=== PATIENT | female | born 1945 | race Caucasian/White ===

== ENCOUNTER 2024-11-08 16:25 | Emergency (ER) | payer MEDICARE, OTHER, SELFPAY ==
[2024-11-08] VITALS (12 sets, daily range): BP systolic 73–133; BP diastolic 54–114; PULSE 91–138; RESP 18–32; TEMP 36.5–37; O2SAT 68–97; BMI 24.5
--- NOTE | 2024-11-08 16:47 | CT_ITS ---
EXAM: CT Angiography Chest Without and With Intravenous Contrast CLINICAL INDICATION: RULE OUT PE TECHNIQUE: Axial computed tomographic angiography images of the chest without and with intravenous contrast. This CT exam was performed using one or more of the following dose reduction techniques: automated exposure control, adjustment of the mA and/or kV according to patient size, and/or use of iterative reconstruction technique. MIP reconstructed images were created and reviewed. COMPARISON: No relevant prior studies available. FINDINGS: PULMONARY ARTERIES: Bilateral pulmonary emboli. AORTA: No acute findings. No thoracic aortic aneurysm. LUNGS AND PLEURAL SPACES: Lung emphysema. No mass. No consolidation. No significant effusion. No pneumothorax. HEART: Unremarkable. No cardiomegaly. No significant pericardial effusion. No evidence of RV dysfunction. BONES/JOINTS: No acute fracture. No dislocation. SOFT TISSUES: Unremarkable. LYMPH NODES: Unremarkable. No enlarged lymph nodes. CT/CTA Chest W/WO Contrast IMPRESSION: Bilateral pulmonary emboli. Red Alert: Bilateral pulmonary emboli The critical findings in the findings and impression above were relayed directl y by me by telephone to Nerissa Briggs on 11/08/2024 at 6:02 pm with readback verification. Reading Location: [facility]
--- NOTE | 2024-11-08 16:47 | CT_ITS ---
PROCEDURE: CT ABDOMEN/PELVIS W IV CONT ONLY 11/08/2024 REASON FOR EXAM: DIARRHEA 3 WEEKS TECHNIQUE: Procedure Code: [id number] Modality: CT Procedure: ABDOMEN/PELVIS W IV CONT ONLY Coronal and Sagittal reconstruction series were provided. One or more dose reduction techniques were used (e.g., Automated exposure control, adjustment of the mA and/or kV according to patient size, use of iterative reconstruction technique. RADIATION DOSE SUMMARY: DLP: 1647.73 mGycm COMPARISON: None. FINDINGS: Lung bases: Clear. Liver: Unremarkable. Gallbladder: Surgically absent. No significant biliary ductal dilatation. Spleen: Unremarkable. Pancreas: Unremarkable. Adrenals: Unremarkable. Kidneys: Mildly atrophic multicystic kidneys likely related to CKD/ESRD. Several cysts have minimally complex features with thin rim calcification. No urolithiasis or hydronephrosis. Bladder: Underdistended, although there appears to be circumferential bladder wall thickening suggestive of cystitis. Air within the bladder may be related to recent catheterization. Reproductive Organs: Prior hysterectomy. Unremarkable adnexal regions. Bowel: Unremarkable stomach and small bowel. No evidence of obstruction. Appendix is not identified but there are no pericecal inflammatory changes. Wall thickening and mild inflammatory fat stranding along the descending and rectosigmoid colon, with advanced distal colonic diverticulosis, likely reflecting segmental colitis and/or diverticulitis. Lymph nodes: No suspicious lymph node enlargement. Vasculature: Abdominal aorta is tortuous but normal in caliber. Advanced atherosclerotic disease involving the major branch vessels. Peritoneum / Retroperitoneum: No ascites or free air. Bones: Multilevel degenerative changes of the spine, with moderate lumbar levoscoliosis. Chronic compression fracture deformities of L2 and L3 with kyphoplasty bone cement. Partially imaged ORIF of the left proximal femur, with intact hardware. Chronic bilateral lower rib fracture deformities. CT/Abdomen/Pelvis W IV Cont ONLY IMPRESSION: 1. Segmental colitis/diverticulitis involving the descending and rectosigmoid c olon. 2. Circumferential bladder wall thickening suggesting cystitis. Air within the bladder lumen probably related to recent catheterization. Correlate clinically. 3. Atrophic multicystic kidneys likely related to CKD/ESRD. Multiple cysts hav e minimally complex features with thin rim calcification. No hydronephrosis. 4. Additional non-acute ancillary findings, as noted above. Reading Location: [facility]
--- NOTE | 2024-11-08 16:47 | CT_ITS ---
EXAM: CT Head Without Intravenous Contrast CLINICAL INDICATION: SYNCOPE TECHNIQUE: Axial computed tomography images of the head/brain without intravenous contrast. This CT exam was performed using one or more of the following dose reduction techniques: automated exposure control, adjustment of the mA and/or kV according to patient size, and/or use of iterative reconstruction technique. COMPARISON: No relevant prior studies available. FINDINGS: BRAIN AND EXTRA-AXIAL SPACES: The cerebral and cerebellar sulci are prominent consistent with brain atrophy. Areas of decreased attenuation in the deep cerebral white matter are consistent with small vessel ischemic/degenerative changes. No acute intracranial hemorrhage, midline shift or mass effect. If symptoms persist, further evaluation with MRI is recommended. BONES/JOINTS: Unremarkable. No acute fracture. SOFT TISSUES: Unremarkable. SINUSES: Unremarkable as visualized. No acute sinusitis. MASTOID AIR CELLS: Unremarkable as visualized. No mastoid effusion. CT/Brain/Head without Contrast IMPRESSION: 1. Generalized brain atrophy. 2. Small vessel ischemic/degenerative changes. 3. No acute intracranial hemorrhage, midline shift or mass effect. If symptoms persist, further evaluation with MRI is recommended. Reading Location: [id number]
--- NOTE | 2024-11-08 16:47 | EKG12_ITS ---
Test Reason : SYNCOPE Blood Pressure : */* mmHG Vent. Rate : 131 BPM Atrial Rate : * BPM P-R Int : * ms QRS Dur : 80 ms QT Int : 342 ms P-R-T Axes : * -61 123 degrees QTcB Int : 505 ms Atrial fibrillation with rapid ventricular response Left axis deviation Septal infarct , age undetermined Marked ST abnormality, possible lateral subendocardial injury Abnormal ECG Confirmed by MURPHY PETIT, STEPHON ([id number]), online editor JULES VALADEZ ([id number]) on 11/11/2024 8:13:48 AM Referred By: ER Confirmed By: STEPHON ARRINGTON MD
--- NOTE | 2024-11-08 16:56 | EX.ED.DYSGE1 ---
HPI History of Present Illness Chief Complaint: Syncope Narrative Narrative: Patient is an 79-year-old female presenting to the emergency department for 3 weeks of diarrhea and a syncopal episode today. Patient has a past medical history of hyperlipidemia, chronic pain syndrome, hypertension, mitral valve stenosis, diastolic CHF, CKD. Patient is DNR CCA, paperwork was brought with the patient. Reportedly per the younger sister at bedside she states that the patient lived in [place] and about 3 weeks ago the patients neighbor called the patient's younger sister to come pick her up because she was not doing well. Sister states that since then she has had diarrhea. She has not been eating or drinking well. She was brought here and placed at [facility]. They state she has lost about 25 pounds since placement there. Patient only reports diarrhea. She is a very poor historian. She denies chest pain, shortness of breath, headache, abdominal pain, dysuria or hematuria. Sister states that she took her to her house today and then when she was taking her back to the facility she was in a wheelchair and syncopized. She did not fall. There was no evidence of seizure-like activity. Patient is on no oral anticoagulation. [facility] Medical History Hypertension Allergy/AdvReac Type Severity Reaction Status Date / Time No Known Allergies Allergy Verified 11/08/24 16:26 Social History Smoking Status: Former smoker ROS ROS ED ROS Narrative See HPI EXAM Physical Exam Narrative Exam Narrative: Vital signs: Reviewed General: Alert and orientedx3. No acute distress. Chronically ill-appearing. HEENT: Head is normocephalic and atraumatic, sinuses nontender, pupils equal round and reactive. Nares are patent. Oropharynx and throat exams normal. Neck: Supple without lymphadenopathy nontender Cardiovascular: Irregularly irregular rate and rhythm, no murmurs. No rubs or gallops. Normal S1 and S2 Respiratory: Clear to auscultation bilaterally. No wheezes, rales, rhonchi. On 4 L NC. Abdominal: Soft and nontender. Normal bowel sounds. No guarding or rebound. Nonsurgical abdomen Extremities: No tenderness. No bruising. Normal range of motion. Normal sensation. Skin: No rash or redness. Neurological: Cranial nerves II through XII are grossly intact. Normal strength and sensation. Normal cerebellar function The rest of the physical exam is unremarkable Const Vital Signs: 11/08/24 16:26 11/08/24 16:33 11/08/24 16:39 Temperature 98.6 F 98.6 F Temperature Source Oral Oral Pulse Rate 137 H 138 H Respiratory Rate 32 H 31 H Respiratory Effort Respiratory Pattern Blood Pressure 133/114 H 84/63 L 73/58 L Blood Pressure Mean 120 70 63 Pulse Ox 74 Oxygen Delivery Method Room Air Room Air Oxygen Flow Rate (L/min) 11/08/24 16:45 11/08/24 16:47 11/08/24 17:11 Temperature Temperature Source Pulse Rate 93 Respiratory Rate 27 H Respiratory Effort Accessory Muscle Use Retracting Respiratory Pattern Tachypnea Blood Pressure 79/54 L Blood Pressure Mean 62 Pulse Ox 68 75 Oxygen Delivery Method Nasal Cannula Non-Rebreather Oxygen Flow Rate (L/min) 4 10 11/08/24 18:00 11/08/24 18:05 11/08/24 19:00 Temperature Temperature Source Pulse Rate 95 91 Respiratory Rate 27 H 18 Respiratory Effort Respiratory Pattern Blood Pressure 108/90 H 113/68 Blood Pressure Mean 96 83 Pulse Ox 71 97 93 Oxygen Delivery Method Room Air Non-Rebreather Non-Rebreather Oxygen Flow Rate (L/min) 15 15 11/08/24 19:47 11/08/24 20:53 11/08/24 21:55 Temperature 98 F 98 F 97.7 F L Temperature Source Oral Oral Oral Pulse Rate 94 94 93 Respiratory Rate 18 18 18 Respiratory Effort Respiratory Pattern Blood Pressure 90/64 93/62 107/75 Blood Pressure Mean 72 72 85 Pulse Ox 90 88 90 Oxygen Delivery Method Nasal Cannula Nasal Cannula Nasal Cannula Oxygen Flow Rate (L/min) 6 6 6 11/08/24 22:04 Temperature 97.7 F L Temperature Source Pulse Rate 93 Respiratory Rate 18 Respiratory Effort Respiratory Pattern Blood Pressure 103/66 Blood Pressure Mean 78 Pulse Ox 90 Oxygen Delivery Method Oxygen Flow Rate (L/min) MDM MDM MDM Narrative Medical decision making narrative: Patient is an 79-year-old female presenting to the emergency department for diarrhea. Patient was seen and examined. Patient arrives in A-fib with RVR, tachypneic at 31, afebrile and BP of initially 133/114 and on recheck 73/58. Two IV lines placed, small fluid bolus started. It was very difficult to get a pulse ox reading with good waveform, multiple modalities, on the finger, toe, earlobe were tried. When there was a good waveform O2 stats where in the low 80s. Placed on NRB. Given concern for PE, will obtain CT scan before placing on bipap. Differential includes but is not limited to: intracranial bleed, PE, ACS, colitis, diverticulitis, C. difficile, UTI Initial EKG shows A-fib with RVR. There does appear to be ST segment depression in V4 through V6 as well as leads I and II. No significant ST elevation meeting STEMI criteria. Given the patient's recent travel from [place] and hypotension with new onset A-fib I do have concern about possible PE. Given the patient's diarrhea for the past 3 weeks I do also have concern for severe dehydration and possibly C. difficile. Blood cultures x 2 obtained. CBC with leukocytosis of 17.3 and normal hemoglobin. Thrombocytopenic at 148. CMP with hypokalemia of 2.5, repleted IV. HUMZA, BUN at 37 creatinine of 2.14, no baseline to compare to. Lactate elevated at 3.2. Anion gap of 17, likely due to lactic acidosis. Magnesium within normal limits. Elevated troponin of 334. Elevated BNP of 3034, again no baseline to compare to. CT PE reviewed by myself and shows evidence of bilateral pulmonary emboli. No evidence of RV dysfunction. No pericardial effusion. CT of the abdomen pelvis shows segmental colitis/diverticulitis involving the descending and rectosigmoid colon. There is also bladder wall thickening suggesting cystitis. Urinalysis with evidence of UTI. Urine culture sent. CT of the brain shows no acute intracranial abnormalities. Given the patient meeting sepsis criteria and the CT findings, will place the patient on Rocephin and Flagyl for both coverage of colitis/diverticulitis and UTI. Patient was reevaluated, patient now in normal sinus rhythm. Repeat EKG shows normal sinus rhythm with continued mild ST elevation in V4 through V6 as well as leads I and II. No dysrhythmia. I had an extensive discussion with patient and sister and brother at bedside about the patient's CODE STATUS. Patient is agreeable to having a central line placed if needed for blood pressure support as well as having TNK be given if she becomes hypotensive again. I thoroughly discussed the risks of this medication including spontaneous bleeds. Blood pressure at my time of evaluation was 108/90 after small fluid bolus and now normal sinus rhythm. At this time I do not think the risks of TNK outweigh the benefits however she becomes hypotensive again TNK will be given. I spoke with Washer And Capper Machine Operator, Dr. Blue, he recommended speaking with pharmacy about dosages if necessary. I did speak with EMT at [facility] for transfer and he states that they do not have any bed availability and recommended discussion with another facility. I did speak with Dr. Cornelius, RNA, at [facility] For transfer of the patient and he accepted the patient for transfer for possible thrombectomy versus IR directed thrombolysis. Did discuss with patient and she is agreeable with having a short intubation for procedural purposes only. Patient and family updated on the findings and the plan. They are agreeable. Transferred to [facility] for further management Clinical impression: Diarrhea Colitis/diverticulitis A fib with RVR Acute hypoxic respiratory failure Bilateral pulmonary emboli Elevated troponin Elevated BNP Leukocytosis Sepsis Elevated lactate Thrombocytopenic Hypokalemic Elevated anion gap History & Record Review Discussion w/independent historian: Patient and Family Lab Data Attestation: I reviewed the patient's lab results. Labs: Laboratory Results - last 24 hr 11/08/24 11/08/24 11/08/24 16:52 16:52 17:45 WBC Cancelled 17.3 H Corrected WBC Cancelled RBC Cancelled 4.63 Hgb Cancelled 13.2 Hct Cancelled 39.4 MCV Cancelled 85.1 MCH Cancelled 28.5 MCHC Cancelled 33.5 RDW Std Deviation Cancelled 42.5 RDW Coeff of Felipe Cancelled 13.7 Plt Count Cancelled 148 L MPV Cancelled 11.1 Immature Gran % (Auto) Cancelled 0.600 Neut % (Auto) Cancelled 86.8 H Lymph % (Auto) Cancelled 4.8 L [place] % (Auto) Cancelled 7.5 Eos % (Auto) Cancelled 0.1 Baso % (Auto) Cancelled 0.2 Absolute Neuts (auto) Cancelled 15.0 H Absolute Lymphs (auto) Cancelled 0.82 L Total Counted Cancelled Neutrophils % (Manual) Cancelled Band Neutrophils % Cancelled Lymphocytes % (Manual) Cancelled Monocytes % (Manual) Cancelled Eosinophils % (Manual) Cancelled Basophils % (Manual) Cancelled Metamyelocytes % Cancelled Myelocytes % Cancelled Promyelocytes % Cancelled Blast Cells % Cancelled Plasma Cell % (Manual) Cancelled Other Cells % Cancelled Nucleated RBC % Cancelled 0 Nucleated RBCs/100 WBC Cancelled Differential Comment Cancelled Diff Path Review Cancelled Hypersegmented Neuts Cancelled Atypical Lymphocytes Cancelled Reactive Lymphocytes Cancelled Smudge Cells Cancelled Toxic Granulation Cancelled Toxic Vacuolation Cancelled Dohle Bodies Cancelled Almas Rods Cancelled Platelet Estimate Cancelled Plt Morphology Comment Cancelled RBC Morphology Cancelled Cancelled Polychromasia Cancelled Hypochromasia Cancelled Basophilic Stippling Cancelled Anisocytosis Cancelled Microcytosis Cancelled Macrocytosis Cancelled Spherocytes Cancelled Sickle Cells Cancelled Target Cells Cancelled Tear Drop Cells Cancelled Ovalocytes Cancelled Stomatocytes Cancelled Castillo-Morehouse Bodies Cancelled Alcides Cells Cancelled Bite Cells Cancelled Crenated Cell Cancelled Acanthocytes (Spur) Cancelled Rouleaux Cancelled Schistocytes Cancelled PT 12.9 INR 1.0 APTT 25.5 Sodium 135 Potassium 2.5 L* Chloride 93 L Carbon Dioxide 24.7 Anion Gap 17 H BUN 37 H Creatinine 2.14 H Est GFR (MDRD) Non-Af 23 L BUN/Creatinine Ratio 17.2 Glucose 205 H Lactic Acid 3.2 H* Calcium 8.7 Magnesium Total Bilirubin 0.80 AST 23 ALT 6 Alkaline Phosphatase 99 Troponin T High Sens 334 H* Troponin T Hi Sens 2 Hr Troponin T Hi Sens 4Hr NT pro BNP II 3034 H Total Protein 5.9 Albumin 3.2 L Globulin 2.7 Albumin/Globulin Ratio 1.2 Urine Color Urine Clarity Urine pH Ur Specific [place] Urine Protein Urine Glucose (UA) Urine Ketones Urine Occult Blood Urine Nitrite Urine Bilirubin Urine Urobilinogen Ur Leukocyte Esterase Urine RBC Urine WBC Ur Squamous Epith Cells Ur Transition Epith Cell Urine Bacteria Urine Mucus 11/08/24 11/08/24 11/08/24 19:15 20:00 21:50 WBC Corrected WBC RBC Hgb Hct MCV MCH MCHC RDW Std Deviation RDW Coeff of Felipe Plt Count MPV Immature Gran % (Auto) Neut % (Auto) Lymph % (Auto) [place] % (Auto) Eos % (Auto) Baso % (Auto) Absolute Neuts (auto) Absolute Lymphs (auto) Total Counted Neutrophils % (Manual) Band Neutrophils % Lymphocytes % (Manual) Monocytes % (Manual) Eosinophils % (Manual) Basophils % (Manual) Metamyelocytes % Myelocytes % Promyelocytes % Blast Cells % Plasma Cell % (Manual) Other Cells % Nucleated RBC % Nucleated RBCs/100 WBC Differential Comment Diff Path Review Hypersegmented Neuts Atypical Lymphocytes Reactive Lymphocytes Smudge Cells Toxic Granulation Toxic Vacuolation Dohle Bodies Al[place] Rods Platelet Estimate Plt Morphology Comment RBC Morphology Polychromasia Hypochromasia Basophilic Stippling Anisocytosis Microcytosis Macrocytosis Spherocytes Sickle Cells Target Cells Tear Drop Cells Ovalocytes Stomatocytes Castillo-Morehouse Bodies [place] Cells Bite Cells Crenated Cell Acanthocytes (Spur) Rouleaux Schistocytes PT INR APTT Sodium Potassium Chloride Carbon Dioxide Anion Gap BUN Creatinine Est GFR (MDRD) Non-Af BUN/Creatinine Ratio Glucose Lactic Acid 1.4 Calcium Magnesium 1.6 Total Bilirubin AST ALT Alkaline Phosphatase Troponin T High Sens Troponin T Hi Sens 2 Hr 676 H* Troponin T Hi Sens 4Hr 888 H* NT pro BNP II Total Protein Albumin Globulin Albumin/Globulin Ratio Urine Color Straw Urine Clarity Turbid Urine pH 6.0 Ur Specific [place] 1.020 Urine Protein 100 H Urine Glucose (UA) Normal Urine Ketones Negative Urine Occult Blood 150 H Urine Nitrite Negative Urine Bilirubin Negative Urine Urobilinogen Normal Ur Leukocyte Esterase 500 H Urine RBC 10-25 SEEN Urine WBC >100 SEEN Ur Squamous Epith Cells 5-10 SEEN Ur Transition Epith Cell 0-5 SEEN Urine Bacteria 4+ Urine Mucus 0 SEEN ABG Data ABG results: ABG 11/08/24 18:21 Specimen Type JOE Sample Site Not entered VBG pH 7.42 VBG pO2 25 VBG HCO3 34 H VBG Total CO2 35 H VBG O2 Sat (Calc) 44 L VBG Base Excess 9 H POC Mix VBG pCO2 Pt Tmp 51.7 H O2 Delivery Device Not entered Radiography Diagnostic Testing: Clinical Impression(s) from Imaging Studies Abdomen/Pelvis CT 11/08/24 16:47 IMPRESSION: 1. Segmental colitis/diverticulitis involving the descending and rectosigmoid colon. 2. Circumferential bladder wall thickening suggesting cystitis. Air within the bladder lumen probably related to recent catheterization. Correlate clinically. 3. Atrophic multicystic kidneys likely related to CKD/ESRD. Multiple cysts have minimally complex features with thin rim calcification. No hydronephrosis. 4. Additional non-acute ancillary findings, as noted above. Reading Location: [facility] Brain CT 11/08/24 16:47 IMPRESSION: 1. Generalized brain atrophy. 2. Small vessel ischemic/degenerative changes. 3. No acute intracranial hemorrhage, midline shift or mass effect. If symptoms persist, further evaluation with MRI is recommended. Reading Location: [facility] Chest CTA 11/08/24 16:47 IMPRESSION: Bilateral pulmonary emboli. Red Alert: Bilateral pulmonary emboli The critical findings in the findings and impression above were relayed directly by me by telephone to Nerissa Briggs on 11/08/2024 at 6:02 pm with readback verification. Reading Location: [facility] Critical Care Time Critical Care Time: Yes Critical care time (excluding procedures): 75-104 minutes, Discussing w/Patient &/or Family/Cardiology Teacher, Discussing w/Consultants, Arranging Admission or Transfer and Performing Direct Patient Care at Bedside Discharge Plan Triage Chief Complaint: Syncope ED Provider: Nerissa Briggs Dx/Rx/DC Orders Primary Care Provider: John Brewer Referrals: John Brewer MD [Primary Care Provider, Family Practice] Print Language: Ecuadorean Disposition Disposition: Acute Care Hospital Discharge Location: [facility] Discharge Date/Time: 11/08/24 23:21
[2024-11-08] MEDS: 0.9% Normal Saline (1000mL) 1,000 ML 1000 ML IV (17:15)
[2024-11-08 17:33] LABS: AST(SGOT) 23 U/L (<=31); Alanine Aminotransfer ALT/SGPT 6 U/L (<=34); Albumin, Serum 3.2 g/dL (3.4-4.8); Alkaline Phosphatase 99 U/L (35-104); Anion Gap 17 (5-15); BUN 37 mg/dL (4-19); BUN/Creat Ratio 17.2 RATIO (10-20); Calcium,Total 8.7 mg/dL (7.6-11.0); Carbon Dioxide 24.7 mmol/L (21.0-32.0); Chloride 93 mmol/L (98-108); Globulin 2.7 g/dL (2.2-4.2); Glucose 205 mg/dL (70-99); Potassium 2.5 mmol/L (3.3-5.1)
[2024-11-08 17:47] LABS: Troponin T High Sensitivity 334 ng/L (<=14)
[2024-11-08 17:50] LABS: Hematocrit 39.4 % (37-47); Hemoglobin 13.2 g/dL (12.0-15.0); Immature Granulocytes Count 0.100 X10^3/uL (0.0-0.0); Mean Corp Hgb Conc 33.5 g/dL (32-36); Mean Corpuscular Volume 85.1 fL (81-99); Mean Platelet Vol. 11.1 fl (6.2-12.0); NRBC Flagged by Analyzer 0 % (0-5); Platelet Count 148 K/mm3 (150-450); RBC Distribution Width CV 13.7 % (11.6-14.6); RBC Distribution Width SD 42.5 fl (35.1-43.9); Red Blood Count 4.63 M/mm3 (4.2-5.4); White Blood Count 17.3 K/mm3 (4.4-11.0)
[2024-11-08 18:24] LABS: SITE Not entered; VBG BASE EXCESS 9 mmol/L (-1.0-3.5); VBG PO2 25 mmHg (25-40); VBG SO2 44 % (50-70); VBG TCO2 35 mmol/L (23-33)
[2024-11-08 18:33] LABS: Partial Thromboplast Time 25.5 Seconds (24.1-36.2); Prothrombin Time (Protime)PT. 12.9 SECONDS (11.7-14.9)
[2024-11-08] MEDS: Heparin Injection (Vial) 5,000 UNIT/ML VIAL 4560 UNIT IV (18:57)
[2024-11-08] MEDS: HEPARIN/D5w 25,000 UNITS 25,000 UNITS/250 ML IV.SOLN. 8.6 UNITS CONT INF (18:57)
[2024-11-08 19:31] LABS: Mucous, Urine 0 SEEN /hpf (<or=2+)
[2024-11-08 19:35] LABS: Pro- Brain NATRIURETIC PEPTIDE 3034 pg/mL (<=1800)
[2024-11-08 19:37] LABS: Color, Urine Straw (Yellow); Glucose, Dipstick Normal (Normal); Ketone-Dipstick Negative (Negative); Leukocyte Esterase-Dipstick 500 /ul (Negative); Nitrite-Dipstick Negative (Negative); Occult Blood-Urine 150 /ul (Negative); Protein-Dipstick 100 mg/dl (Negative); Specific Gravity, Urine 1.020 (1.002-1.030); Urine Bilirubin Dipstick Negative (Negative)
[2024-11-08] MEDS: metroNIDAZOLE 500 MG/100 ML BAG 100 MG IV (19:56)
--- NOTE | 2024-11-08 20:09 | EKG12_ITS ---
Test Reason : REPEAT Blood Pressure : */* mmHG Vent. Rate : 95 BPM Atrial Rate : 95 BPM P-R Int : 114 ms QRS Dur : 86 ms QT Int : 344 ms P-R-T Axes : 55 -60 164 degrees QTcB Int : 432 ms Normal sinus rhythm Left axis deviation ST & T wave abnormality, consider lateral ischemia Abnormal ECG Confirmed by STEPHON ARRINGTON MD ([id number]), assignment editor JULES VALADEZ ([id number]) on 11/11/2024 8:13:36 AM Referred By: ER Confirmed By: STEPHON ARRINGTON MD
[2024-11-08 20:11] LABS: Red Blood Cells-Urine 10-25 SEEN /hpf (0-5); Squamous Epithelial Cells - UA 5-10 SEEN /hpf (5-10); Transitional Epithelial - Ur 0-5 SEEN /hpf (0-5)
[2024-11-08 20:37] LABS: Troponin T High Sens 2 HR 676 ng/L (<=14)
[2024-11-08] MEDS: Potassium Chloride 10mEq/100mL 10 MEQ/100 ML IV.SOLN. 100 MEQ IV BOLUS ×2 (20:42→21:54)
[2024-11-08 20:51] LABS: Magnesium 1.6 mg/dL (1.5-2.2)
[2024-11-08 21:02] LABS: Reflex Lactate? Y
[2024-11-08 23:07] LABS: Troponin T High Sens 4 HR 888 ng/L (<=14)
== END 2024-11-08 23:21 | disposition short-term general hospital (02) ==
LOC: ED 17:47
PROVIDERS: Emergency Provider Student in an Organized Health Care Education/Training Program; PCP Family Medicine; Visit Provider Student in an Organized Health Care Education/Training Program
DX: A41.9 Sepsis, unspecified organism (principal); J96.01 Acute respiratory failure with hypoxia; I13.0 Hypertensive heart and chronic kidney disease with heart failure and stage 1 through stage 4 chronic kidney disease, or unspecified chronic kidney disease; I50.9 Heart failure, unspecified; I48.91 Unspecified atrial fibrillation; I26.99 Other pulmonary embolism without acute cor pulmonale; N18.9 Chronic kidney disease, unspecified; E87.6 Hypokalemia; D72.829 Elevated white blood cell count, unspecified; E78.5 Hyperlipidemia, unspecified; Z87.891 Personal history of nicotine dependence; R19.7 Diarrhea, unspecified; R79.89 Other specified abnormal findings of blood chemistry; E87.20 Acidosis, unspecified; D69.6 Thrombocytopenia, unspecified
CPT/HCPCS: 51702; 70450; 71275; 74177; 80053; 81001; 82803; 83605; 83735; 83880; 84484; 85025; 85610; 85730; 87040; 87086; 87088; 87186; 87631; 93005; 96361; 96365; 96366; 96368; 99285; Q9967; A4216

== ENCOUNTER 2024-11-15 12:25 | Inpatient (IN) | payer MEDICARE, OTHER, SELFPAY ==
[2024-11-15 12:41] VITALS: BP 141/84; PULSE 91; RESP 20; TEMP 36.4; O2SAT 96; BMI 26.4
--- NOTE | 2024-11-15 13:55 | NURSING ---
Lead Level Designer Note; Activity Asset: Tristan Simental prefers to be called Sofía. Sofía is independent in her choice of daily activities. She enjoys reading, spending time w/family, friends and adventist. She welcomes both the therapy dog and dinkey operator slag visits. Her family will bring her items she may need from home. Staff will encourage social activities, remind her of weekly activities and respect her right to say no.
--- NOTE | 2024-11-15 14:24 | US_ITS ---
PROCEDURE: THYROID 11/15/2024 REASON FOR EXAM: RIGHT 3.1CM NODULE. TECHNIQUE: Procedure Code: USTHY Modality: US Procedure: THYROID COMPARISON: None FINDINGS: Right thyroid lobe size: 5.1 x 2.8 x 2.6 cm Left thyroid lobe size: 4.2 x 1.2 x 0.9 cm Isthmus: 0.1 cm Background parenchymal echotexture is heterogeneous. Nodules: 1. Lobe: Right, Location: Superior mid, Size: 2.4 x 2.4 x 2.3 cm, Stability: N/A Composition: Solid or almost completely solid (+2) Echogenicity: Hyper to Isoechoic (+1) Margin: Lobulated (+2) Shape: Wider than tall (+0) Echogenic Foci: None (+0) TI-RADS: <2 = TR 1 * 2 = TR 2 * 3 = TR 3 * 4-6 = TR 4 * >6 = TR 5 2. Lobe: Right, Location: Lower, Size: 1.3 x 1.1 x 1.0 cm, Stability: N/A Composition: Solid or almost completely solid (+2) Echogenicity: Hyper to Isoechoic (+1) Margin: Smooth (+0) Shape: Taller than wide (+3) Echogenic Foci: None (+0) TI-RADS: <2 = TR 1 * 2 = TR 2 * 3 = TR 3 * 4-6 = TR 4 * >6 = TR 5 US/Thyroid IMPRESSION: Findings compatible with multinodular goiter. RECOMMENDATION: Based on most suspicious nodule. Nodule size = largest diameter Only evaluate nodule if =>5 mm. Growth > 20% in 2 dimensions = worsening. Follow up to 4 nodules. Recommend biopsy for no more than 2 nodules. MULTINODULAR GOITER. Reading Location: [id number]
--- NOTE | 2024-11-15 14:47 | PCM.HP.STD ---
[facility] - General General Date of Admission: 11/15/24 Date of Service: 11/15/24 Chief Complaint: Here for rehabilitation. HPI Narrative 11/08/2024 [facility] ED syncope. Moved from [place] 3 weeks ago, she was in skilled nursing for rehabilitation, signed out AMA, went home alone. Concerned neighbor called [place] sister who drove to [place] and picked her up. Diarrhea for 3 weeks, syncope in wheelchair. Pulsox 80's, NRB applied. Troponin 334, BNP 3034. Atrial fibrillatin with RVR. CT chest showed saddle pulmonary embolism with bilateral extension. CT abdomen/pelvis showed diverticulitis/cystitis. UA c/w UTI. Rocephin, Flagyl given for sepsis/diverticulitis/cystitis. Transfer to [facility] to consider IR thrombectomy. 11/08/2024 Admit [facility]. Wean oxygen for acute respiratory failure with hypoxia. Heparin drip for saddle pulmonary embolism, tPA given. 11/15/2024 Acute respiratory failure required AirVO, weaned to room air. Saddle pulmonary embolism treated with heparin drip, tPA, now Eliquis. LLE DVT treated with Eliquis. Diverticulitis treated with Rocephin, Flagyl, transition to oral antibiotic, benefit from colonoscopy. Acute kidney injury improved. Right thyroid nodule, needs follow up. Hypokalemia replaced. Neutra-Phos from hypophosphatemia. Atrial fibrillation rate controlled. 11/15/2024 Admit to TCU with debility, here for rehabilitation, strengthening, prior to discharge to [facility] Medical History (Updated 11/15/24 @ 15:[address] Allen Ashley MD) Chronic kidney disease, stage 3b Chronic heart failure with preserved ejection fraction (HFpEF) Hyperlipidemia, unspecified Essential (primary) hypertension Thyroid nodule Hypokalemia Cystitis Sigmoid diverticulitis Sepsis Atrial fibrillation with RVR Left leg DVT Saddle pulmonary embolus Acute respiratory failure with hypoxia Syncope Debility Hypertension Home Medications ?Medication ?Instructions ?Recorded ?Last Taken ?Type apixaban 5 mg tablet (Eliquis) 10 mg PO BID blood clots 11/15/24 Unknown History carvedilol 6.25 mg tablet 6.25 mg PO BID BP/pulse 11/15/24 Unknown History cefdinir 300 mg capsule 300 mg PO BID UTI 11/15/24 Unknown History hydrochlorothiazide 25 mg tablet 25 mg PO DAILY BP/fluid 11/15/24 Unknown History loperamide 2 mg capsule 2 mg PO Q8H PRN diarrhea 11/15/24 Unknown History (Anti-Diarrheal (loperamide)) metronidazole 500 mg tablet 500 mg PO TID infection 11/15/24 Unknown History nystatin 100,000 unit/gram topical 1 applic topical BID yeast 11/15/24 Unknown History cream potassium, sodium phosphates 280 1 packet PO BID electrolyte 11/15/24 Unknown History mg-160 mg-250 mg oral powder replacement packet (Phos-NaK) simvastatin 20 mg tablet 20 mg PO QHS cholesterol 11/15/24 Unknown History Allergy/AdvReac Type Severity Reaction Status Date / Time No Known Allergies Allergy Verified 11/08/24 16:26 Family History (Updated 11/15/24 @ 15:[address] Allen Ashley MD) Mother , 89 years old. Parkinson disease Father , 73 years old. Myocardial infarction Brother Cancer Brother Colon cancer metastasized to liver Surgical History (Updated 11/15/24 @ 15:[address] Allen Ashley MD) History of mitral valve repair History of hysterectomy Social History (Updated 11/15/24 @ 15:[address] Allen Ashley MD) household members: none and other details: [place] housing: assisted living facility Smoking Status: Former smoker alcohol intake: current alcohol intake frequency: holidays/special occasions only substance use type: does not use Vital Signs Vital Signs Vital Signs: 11/15/24 12:41 11/15/24 13:10 Temperature 97.6 F L Temperature Source Oral Pulse Rate 91 Pulse Rhythm Regular Pulse Strength Normal (2+) Respiratory Rate 20 H Respiratory Effort Normal Non-Labored Respiratory Depth Normal Respiratory Pattern Normal Blood Pressure 141/84 H Blood Pressure Mean 103 Blood Pressure Source Monitor Pulse Ox 96 Oxygen Delivery Method Room Air Room Air Physical Exam Const alert General Appearance: cooperative HEENT normocephalic Eyes PERRL and EOMs intact bilaterally Neck supple, no JVD and no carotid bruits Neck Narrative: Right IJ dressing. Resp normal respiratory effort, normal air movement and clear to auscultation bilaterally Cardio regular rate and regular rhythm GI normal to inspection, nondistended, normoactive bowel sounds, non-tender and non-distended Extremity normal capillary refill General Extremity: Negative for edema Skin no rashes or lesions noted General Skin Exam: no breakdown Psych affect normal Appearance: appropriate Assessment & Plan Assessment/Plan (1) Debility: (2) Syncope: (3) Acute respiratory failure with hypoxia: (4) Saddle pulmonary embolus: (5) Left leg DVT: (6) Atrial fibrillation with RVR: (7) Sepsis: (8) Sigmoid diverticulitis: (9) Cystitis: (10) Hypokalemia: (11) Hypophosphatemia: (12) Thyroid nodule: (13) Essential (primary) hypertension: (14) Hyperlipidemia, unspecified: (15) Chronic heart failure with preserved ejection fraction (HFpEF): (16) Chronic kidney disease, stage 3b: PLAN: Plan 79 year old female with below past medical history hospitalized for syncope/acute respiratory failure with hypoxia 2/2 saddle pulmonary embolism/left lower extremity dvt, complicated by sepsis/sigmoid diverticulitis/cystitis, hypokalemia, hypophosphatemia, atrial fibrillation with rvr, acute kidney injury, right thyroid nodule, admitted to TCU with debility, here for rehabilitation, strengthening, prior to discharge to [facility]. Debility - PT/OT. Pain - Tylenol 1000mg q6 prn pain (1-10). Bowel - senna/colace 1 tablet bid prn, X-ray of abdomen. Adult immunization - Administer pneumonia vaccine, covid vaccine, flu vaccine as appropriate. DVT prophylaxis - Eliquis. Saddle pulmonary embolism/LLE dvt - Eliquis 10mg bid thru 11/21/2024, then 5mg bid, adjust dose once kidney function available. Hyperlipidemia - Atorvastatin 10mg qhs. Hypertension - Coreg 6.25mg bidcm, HCTZ 25mg daily. Diverticulitis/Cystitis - Cefdinir 300mg bid thru 11/16/2024, Flagyl 500mg tid thru 11/16/2024. Hypophosphatemia - Neutra Phos 1 packet bid, phos level tomorrow. Tinea Corporis - Nystatin powder topical bid. Thyroid nodule - 3.1cm right nodule, order thyroid ultrasound, biopsy if indicated.
--- NOTE | 2024-11-15 14:55 | RAD_ITS ---
PROCEDURE: ABDOMEN SINGLE VIEW 11/15/2024 REASON FOR EXAM: DIARRHEA. TECHNIQUE: Procedure Code: RADABD Modality: DX Procedure: Two-view supine abdomen. COMPARISON: Abdomen and pelvis CT of 11/08/2024. RAD/Abdomen Single View IMPRESSION: Partially visualized left femoral intramedullary nail with proximal axial pin. Prior kyphoplasties of the L2 and L3 levels. Prominent reverse S shaped lumbar rotoscoliosis also seen, with prominent degen erative changes present. No excess stool burden is noted. Air and stool are seen throughout the large bowel and rectum. No small bowel dilation is noted. No mass or mass effect is seen. Reading Location: [id number]
[2024-11-15] MEDS: APIXABAN 5 MG TABLET 10 MG PO (21:44)
[2024-11-15] MEDS: Na Biphos/Potassium Phosphate PACKET 1 PACKET PO (21:45)
[2024-11-16 07:08] VITALS: O2SAT 95
--- NOTE | 2024-11-16 07:52 | PCM.PN.DRR ---
Documented by User: Trenton Betancourt 11/16/24 08:02 TCU RX Drug Regimen Review Subjective/Objective Subjective/Objective Subjective: TCU admission note. 79 year old female with below past medical history hospitalized for syncope/acute respiratory failure with hypoxia 2/2 saddle pulmonary embolism/left lower extremity dvt, complicated by sepsis/sigmoid diverticulitis/cystitis, hypokalemia, hypophosphatemia, atrial fibrillation with rvr, acute kidney injury, right thyroid nodule, admitted to TCU with debility, here for rehabilitation, strengthening, prior to discharge to [facility]. Objective: Allergies No Known Allergies Allergy (Verified 11/08/24 16:26) Current Medications Generic Name Dose Route Start Last Admin Trade Name Freq PRN Reason Stop Dose Admin Acetaminophen 1,000 mg 11/15/24 14:45 11/15/24 17:41 Acetaminophen 500 Mg Tablet PO 1,000 mg Q6H PRN PRN Administration Pain Score 1-10 Apixaban 10 mg 11/15/24 22:00 11/15/24 21:44 Apixaban 5 Mg Tablet PO 11/21/24 22:01 10 mg BID RYAN Administration Apixaban 5 mg 11/22/24 10:00 Apixaban 5 Mg Tablet PO BID RYAN Atorvastatin Calcium 10 mg 11/15/24 22:00 11/15/24 21:44 Atorvastatin Calcium 10 Mg Tablet PO 10 mg QHS RYAN Administration Calamine/Phenol 1 applic 11/15/24 22:00 11/15/24 21:43 Menthol/Lanolin/Calamine/Znox 113 Gm Tube TOPICAL 1 applic BID RYAN Administration Protocol Carvedilol 6.25 mg 11/15/24 17:00 11/15/24 17:30 Carvedilol 6.25 Mg Tablet PO 6.25 mg BIDCM RYAN Administration Protocol Cefdinir 300 mg 11/15/24 22:00 11/15/24 21:45 Cefdinir 300 Mg Capsule PO 11/16/24 10:01 300 mg BID RYAN Administration Hydrochlorothiazide 25 mg 11/16/24 10:00 Hydrochlorothiazide 25 Mg Tablet PO DAILY RYAN Protocol Nystatin 1 applic 11/15/24 22:00 11/15/24 21:42 Nystatin Powder 15gm Bottle TOPICAL 1 applic BID RYAN Administration Potassium Phos/Sodium Phos 1 packet 11/15/24 22:00 11/15/24 21:45 Na Biphos/Potassium Phosphate Packet PO 11/17/24 22:01 1 packet BID RYAN Administration Senna/Docusate Sodium 1 tablet 11/15/24 14:45 Senna/Docusate Sodium 1 Tablet PO BID PRN Constipation Sodium Chloride 10 - 40 ml 11/15/24 13:08 0.9% Saline Lock 10 Ml Syringe IV UD PRN SALINE FLUSH Tuberculin PPD 0.1 ml 11/16/24 10:00 Tuberculin,Purif.Prot.Deriv. 50 Tu/Ml Vial ID 11/16/24 10:01 X1 ONE Tuberculin PPD 0.1 ml 11/23/24 10:00 Tuberculin,Purif.Prot.Deriv. 50 Tu/Ml Vial ID 11/23/24 10:01 X1 ONE Problem List Chronic kidney disease, stage 3b (Acute) Chronic heart failure with preserved ejection fraction (HFpEF) (Acute) Hyperlipidemia, unspecified (Acute) Essential (primary) hypertension (Acute) Thyroid nodule (Acute) Hypophosphatemia (Acute) Hypokalemia (Acute) Cystitis (Acute) Sigmoid diverticulitis (Acute) Sepsis (Acute) Atrial fibrillation with RVR (Acute) Left leg DVT (Acute) Saddle pulmonary embolus (Acute) Acute respiratory failure with hypoxia (Acute) Syncope (Acute) Debility (Acute) Vital Signs Temp Pulse Resp BP Pulse Ox O2 Del Method O2 Flow Rate 97.6 F L 91 20 H 141/84 H 95 Nasal Cannula 2 11/15/24 12:41 11/15/24 12:41 11/15/24 12:41 11/15/24 12:41 11/16/24 07:08 11/16/24 07:08 11/16/24 07:08 Oxygen Flow Rate (L/min) 2 Oxygen Delivery Method Nasal Cannula Assessment/Plan: 1. Pain: acetaminophen 1000 mg PO Q6H PRN pain. The patient has received x1 dose of PRN acetaminophen so far this admission. Please continue to monitor pain levels, PRN medication usage, and LFTs (AST/ALT = 23/6 U/L on 11/08/24). 2. Bowel: senna/docusate 1 tablet PO BID PRN constipation. The patient has not required any PRN doses of senna/docusate so far this admission. Please continue to monitor for PRN medication usage, bowel movements, (last documented on 11/16/24), for constipation and diarrhea. 3. Saddle PE/LLE DVT: apixaban 10 mg PO BID through 11/21/24, then 5 mg PO BID thereafter. Please continue to monitor for s/s of DVT/PE such as shortness of breath, chest pain, as well as for s/s of bleeding/excessive bruising, hemoglobin levels (Hgb = 13.2 g/dL on 11/08/24), and platelet counts (Plt = 148 K/mm3 on 11/08/24). 4. Hyperlipidemia: atorvastatin 10 mg PO QHS. Please continue to monitor lipid levels (no recent lipid levels documented), LFTs (AST/ALT = 23/6 U/L on 11/08/24), and for myalgias. 5. Hypertension: carvedilol 6.25 mg PO BID, hydrochlorothiazide 25 mg PO daily. Please continue to monitor blood pressures (recently documented 141/84 mmHg), heart rates (recently documented 91 betas/min), for fatigue, for s/s of orthostasis, renal function (serum creatinine = 2.14 mg/dL on 11/08/24), sodium levels (Na = 135 mmol/L on 11/08/24), potassium levels (K = 2.5 mmol/L on 11/08/24), and for s/s of dehydration. 6. Diverticulitis/cystitis: cefdinir 300 mg PO BID through 11/16/24. Please continue to monitor for s/s of urinary tract infection such as dysuria, frequency and urgency, for fevers (T = 97.6 F on 11/15/24), chills, and renal function (serum creatinine = 2.14 mg/dL on 11/08/24). 7. Hypophosphatemia: neutra phos 1 packet PO BID. Please continue to monitor phosphorus levels (no recent phos level, plan for phos level today per note). 8. Isidra corporis/skin irritation: calmoseptine 1 application topically BID, nystatin powder 1 application topically BID. Please continue to monitor for resolution of tinea corporis and skin irritation. Assessment/Plan for indications treated with psychotropic medications: NA Medical chart and medication regimen reviewed. The following medication irregularities or issues were identified: NA Date Date of Note: 11/16/24 Documented by User: Dr. Allen Ashley MD 11/16/24 09:33 TCU RX Drug Regimen Review Provider Comments Provider responsibility Provider Comments to Recommendations by Pharmacy Agree
[2024-11-16 08:11] LABS: Hematocrit 32.1 % (37-47); Hemoglobin 10.1 g/dL (12.0-15.0); Immature Granulocytes Count 0.040 X10^3/uL (0.0-0.0); Mean Corp Hgb Conc 31.5 g/dL (32-36); Mean Corpuscular Volume 90.4 fL (81-99); Mean Platelet Vol. 10.1 fl (6.2-12.0); NRBC Flagged by Analyzer 0 % (0-5); Platelet Count 276 K/mm3 (150-450); RBC Distribution Width CV 15.8 % (11.6-14.6); RBC Distribution Width SD 52.8 fl (35.1-43.9); Red Blood Count 3.55 M/mm3 (4.2-5.4); White Blood Count 7.6 K/mm3 (4.4-11.0)
[2024-11-16 08:37] VITALS: BP 131/73; PULSE 90; RESP 18; TEMP 36.9; O2SAT 95
[2024-11-16] MEDS: Senna/Docusate Sodium 1 Tablet PO (08:39)
[2024-11-16] MEDS: APIXABAN 5 MG TABLET 10 MG PO ×2 (08:40→21:06)
[2024-11-16] MEDS: Na Biphos/Potassium Phosphate PACKET 1 PACKET PO ×2 (08:40→21:06)
[2024-11-16 08:56] LABS: Anion Gap 11 (5-15); BUN 9 mg/dL (4-19); BUN/Creat Ratio 9.9 RATIO (10-20); Calcium,Total 8.6 mg/dL (7.6-11.0); Carbon Dioxide 19.8 mmol/L (21.0-32.0); Chloride 110 mmol/L (98-108); Glucose 72 mg/dL (70-99); Potassium 4.2 mmol/L (3.3-5.1)
[2024-11-16] MEDS: Tuberculin,Purif.prot.deriv. 50 TU/ML Vial 0.1 ML ID (10:34)
[2024-11-16 10:51] VITALS: BMI 26.3
--- NOTE | 2024-11-16 11:34 | NURSING ---
Pt very painful despite PRN Acetaminophen. Dr. Ashley updated N.O. for Tramadol 50mg q6h prn for pain 6-10. Order read back.
[2024-11-16 16:00] VITALS: BP 134/79; PULSE 85; RESP 17; O2SAT 96
[2024-11-17 09:30] VITALS: BP 128/78; PULSE 89; RESP 17; TEMP 36.9; O2SAT 93
[2024-11-17] MEDS: APIXABAN 5 MG TABLET 10 MG PO ×2 (09:32→21:35)
[2024-11-17] MEDS: Na Biphos/Potassium Phosphate PACKET 1 PACKET PO ×2 (09:33→21:39)
[2024-11-17] MEDS: 0.9% Saline Lock 10 ML Syringe IV ×2 (09:38→21:40)
[2024-11-17 16:00] VITALS: BP 135/74
[2024-11-18] MEDS: APIXABAN 5 MG TABLET 10 MG PO ×2 (09:58→20:50)
[2024-11-18 10:10] VITALS: BP 120/77; PULSE 96; RESP 16; TEMP 37; O2SAT 93
[2024-11-18 11:15] VITALS: PULSE 81; RESP 18; O2SAT 97
--- NOTE | 2024-11-18 13:43 | NURSING ---
OPEN SORE TO RT BUTTOCK,WOUND CONSULT IN. Q2 TURN AND FLOAT HEELS DUE TO REDNESS AND AREA OF CONCERN. RN AWARE
[2024-11-18 13:57] VITALS: O2SAT 97
[2024-11-18 16:00] VITALS: BP 118/74; PULSE 92; RESP 16; O2SAT 97
--- NOTE | 2024-11-18 16:28 | CASEMGMT ---
Social Work SW phoned pt's sister, SHEY, to complete assessment questions as chart review noted pt is a poor historian. Introduced self and role. Verified contacts. Inquired about code status as DNR-CCA, with intubation, and sister is going to locate the paperwork to ensure validity. Sister will also provide copies of pt's advance directives. SW educated to Medicare [place]. [place] [id number], and encouraged to contact secondary insurance as pt is in copay days. DC goal is to return to [place]. SW will continue to follow for DC planning. Adelaida Marie EDI SPECIALIST CYLINDER FILLER
[2024-11-19] MEDS: APIXABAN 5 MG TABLET 10 MG PO ×2 (09:02→20:24)
[2024-11-19 09:05] VITALS: BP 116/81; PULSE 104; RESP 17; TEMP 36.6; O2SAT 95
[2024-11-19 12:57] VITALS: BMI 25.8
[2024-11-19 13:17] VITALS: O2SAT 94
[2024-11-19] MEDS: 0.9% Saline Lock 10 ML Syringe IV (17:54)
[2024-11-19 17:57] VITALS: BP 128/81; PULSE 95
[2024-11-20 08:45] VITALS: BP 118/71; PULSE 87; RESP 18; TEMP 36.5; O2SAT 94
[2024-11-20] MEDS: APIXABAN 5 MG TABLET 10 MG PO ×2 (08:47→20:19)
[2024-11-20] MEDS: 0.9% Saline Lock 10 ML Syringe IV ×2 (08:50→20:22)
--- NOTE | 2024-11-20 12:37 | NURSING ---
Pt updated on positive Covid test refused this nurse to update family.
--- NOTE | 2024-11-20 14:10 | CASEMGMT ---
Social Work IDT met with patient, sister, brother and IAM for care plan meeting. Discussed patient's progress in PT/OT/ST/SN/RDN. Educated to Medicare benefit; admitted on day ; on day . Brother verified with secondary insurance that they cover copays. Provided pt/family with written communication of insurance process and copay coverage during stay. Pt's goal is to return to [facility]. SW will ensure they can meet pt's needs at time of DC. Pt scored 11/30 on MOCA and is a lucas lift. Pt can be self-limiting and resistive with standing and walking; SW witnessed today's therapy session. Family inquired about pt's living will and her wishes. SW reviewed living will and explained provision. Explained pt's code status currently as DNR-CCA WITH intubation. pt voiced she does want to be given CPR, intubated and placed on a ventilator if needed. SW gave detailed,clear explanation of full code and the possible ramifications of CPR. Pt voiced understanding and remained consistent with wanting to be full code. Family attempted to discuss with pt her wishes and pt did not revert to DNR. SW notified nursing of change in code status. SW will continue to follow for DC planning. Adelaida Marie MSW CONSTRUCTION EQUIPMENT OPERATOR
[2024-11-20 16:20] VITALS: BP 115/65; PULSE 88
[2024-11-21 08:13] VITALS: BP 126/79; PULSE 84; RESP 17; TEMP 36.7; O2SAT 96
[2024-11-21] MEDS: APIXABAN 5 MG TABLET 10 MG PO ×2 (08:15→21:14)
[2024-11-21 17:13] VITALS: BP 116/70; PULSE 91
[2024-11-21] MEDS: 0.9% Saline Lock 10 ML Syringe IV (21:22)
[2024-11-21 21:30] VITALS: PULSE 84; RESP 16
[2024-11-22 01:01] VITALS: PULSE 86; RESP 16
[2024-11-22 06:05] LABS: Hematocrit 35.2 % (37-47); Hemoglobin 11.4 g/dL (12.0-15.0); Immature Granulocytes Count 0.020 X10^3/uL (0.0-0.0); Mean Corp Hgb Conc 32.4 g/dL (32-36); Mean Corpuscular Volume 91.9 fL (81-99); Mean Platelet Vol. 10.9 fl (6.2-12.0); NRBC Flagged by Analyzer 0 % (0-5); Platelet Count 221 K/mm3 (150-450); RBC Distribution Width CV 15.5 % (11.6-14.6); RBC Distribution Width SD 51.8 fl (35.1-43.9); Red Blood Count 3.83 M/mm3 (4.2-5.4); White Blood Count 6.7 K/mm3 (4.4-11.0)
[2024-11-22 06:30] LABS: Anion Gap 9 (5-15); BUN 13 mg/dL (4-19); BUN/Creat Ratio 14.4 RATIO (10-20); Calcium,Total 8.2 mg/dL (7.6-11.0); Carbon Dioxide 25.4 mmol/L (21.0-32.0); Chloride 104 mmol/L (98-108); Estimated Creatinine Clearance 41.41 ml/min (50-250); Glucose 73 mg/dL (70-99); Potassium 3.0 mmol/L (3.3-5.1)
[2024-11-22 08:37] VITALS: BP 121/84; PULSE 97; RESP 16; TEMP 36.9
[2024-11-22] MEDS: APIXABAN 5 MG TABLET PO ×2 (08:42→20:17)
--- NOTE | 2024-11-22 08:55 | NURSING ---
Updated Dr. Spears on potassium 3.0, order to hold HCTZ and give 40meq potassium now.
--- NOTE | 2024-11-22 09:17 | NURSING ---
Mammal Keeper Note; MDS for 11/22/2024 Complete
[2024-11-22] MEDS: Potassium Chloride Oral Tablet 20 MEQ 40 MEQ PO (10:43)
[2024-11-22 12:50] VITALS: BP 104/72; BP 110/68; PULSE 96; PULSE 99
[2024-11-22 16:46] VITALS: BP 118/73; PULSE 91
[2024-11-22] MEDS: 0.9% Saline Lock 10 ML Syringe IV (20:20)
[2024-11-23 07:48] LABS: AST(SGOT) 16 U/L (<=31); Alanine Aminotransfer ALT/SGPT 7 U/L (<=34); Albumin, Serum 2.7 g/dL (3.4-4.8); Alkaline Phosphatase 62 U/L (35-104); Anion Gap 9 (5-15); BUN 14 mg/dL (4-19); BUN/Creat Ratio 12.3 RATIO (10-20); Calcium,Total 8.3 mg/dL (7.6-11.0); Carbon Dioxide 27.0 mmol/L (21.0-32.0); Chloride 104 mmol/L (98-108); Estimated Creatinine Clearance 32.98 ml/min (50-250); Globulin 2.1 g/dL (2.2-4.2); Glucose 64 mg/dL (70-99); Magnesium 1.5 mg/dL (1.5-2.2); Potassium 3.6 mmol/L (3.3-5.1)
[2024-11-23 09:14] VITALS: BP 117/71; PULSE 82; RESP 16; TEMP 36.9; O2SAT 94
[2024-11-23] MEDS: APIXABAN 5 MG TABLET PO ×2 (09:37→21:06)
[2024-11-23] MEDS: 0.9% Saline Lock 10 ML Syringe IV ×2 (09:38→21:28)
[2024-11-23 10:02] LABS: Mucous, Urine 0 SEEN /hpf (<or=2+); Red Blood Cells-Urine 0 SEEN /hpf (0-5); Squamous Epithelial Cells - UA 0 SEEN /hpf (5-10)
[2024-11-23 10:04] LABS: Color, Urine Yellow (Yellow); Glucose, Dipstick Normal (Normal); Ketone-Dipstick 5 mg/dl (Negative); Leukocyte Esterase-Dipstick 100 /ul (Negative); Nitrite-Dipstick Negative (Negative); Occult Blood-Urine 10 /ul (Negative); Protein-Dipstick 30 mg/dl (Negative); Specific Gravity, Urine 1.015 (1.002-1.030); Urine Bilirubin Dipstick Negative (Negative)
[2024-11-23] MEDS: Tuberculin,Purif.prot.deriv. 50 TU/ML Vial 0.1 ML ID (11:58)
[2024-11-24 09:21] VITALS: BP 113/79; PULSE 94; RESP 17; TEMP 36.9; O2SAT 96
[2024-11-24] MEDS: APIXABAN 5 MG TABLET PO ×2 (09:29→21:55)
[2024-11-24] MEDS: 0.9% Saline Lock 10 ML Syringe IV (21:55)
[2024-11-25 10:25] VITALS: BP 114/83; PULSE 89; RESP 20; TEMP 36.6; O2SAT 96
[2024-11-25] MEDS: APIXABAN 5 MG TABLET PO ×2 (10:29→20:25)
[2024-11-25] MEDS: COVID VAC 25-26 (12UP)(MOD)/PF 50 MCG/0.5 ML SYRINGE IM (16:09)
[2024-11-25 16:25] VITALS: PULSE 87; RESP 18; O2SAT 97
[2024-11-25 20:30] VITALS: PULSE 78; RESP 16
[2024-11-25] MEDS: 0.9% Saline Lock 10 ML Syringe IV (20:33)
[2024-11-26 04:55] VITALS: PULSE 86; RESP 18; O2SAT 98
[2024-11-26 07:55] VITALS: BP 115/69; PULSE 88; RESP 18; TEMP 36.8; O2SAT 91
[2024-11-26] MEDS: APIXABAN 5 MG TABLET PO ×2 (08:16→20:06)
[2024-11-26 12:00] VITALS: BMI 24.6
--- NOTE | 2024-11-26 12:43 | CASEMGMT ---
Social Work IDT discussed patient is not progressing and ready to set DC date. SW sent updated clinicals to [facility] to inquire about acceptance as pt is a lucas lift and needs total assistance. Adelaida Marie OFFICE SUPPORT ASSOCIATE TOY MECHANIC
--- NOTE | 2024-11-26 18:37 | RAD_ITS ---
PROCEDURE: L/S SPINE MIN 4 VIEWS 11/26/2024 REASON FOR EXAM: LOW BACK PAIN TECHNIQUE: Procedure Code: RADSPLS Modality: DX Procedure: L/S SPINE MIN 4 VIEWS COMPARISON: None available. FINDINGS: No evidence of acute fracture. Chronic compression fracture deformities of L2 and L3 vertebrae with kyphoplasty bone cement. Moderate-advanced lumbar levorotoscoliosis with lateral subluxations at multiple levels, and low-grade luis/retrolisthesis. Multilevel spondylotic changes with varying degrees of disc space narrowing, small anterior endplate osteophytes and hypertrophic facet arthropathy. Partially imaged left proximal femur ORIF hardware. Qualitative osteopenia. Probable old healed fractures of the right 11th and 12th ribs with callus. Atherosclerotic vascular calcifications. RAD/L/S Spine Min 4 Views IMPRESSION: No evidence of acute fracture. Chronic compression fracture deformities of L2 and L3 with kyphoplasty bone cement. Moderate-advanced multilevel spondylotic changes with levorotoscoliosis. Reading Location: [id number]
[2024-11-26] MEDS: 0.9% Saline Lock 10 ML Syringe IV (20:06)
[2024-11-27 08:38] VITALS: BP 106/65; PULSE 83; RESP 18; TEMP 36.4; O2SAT 92
[2024-11-27] MEDS: APIXABAN 5 MG TABLET PO ×2 (08:39→20:22)
--- NOTE | 2024-11-27 11:51 | NURSING ---
Wound nurse into see patient today due to redness on coccyx. Will be applying triad cream to area for treatment and prevention. Encouragement provided for patient to do modified toileting at this time as well. Pt denied.
--- NOTE | 2024-11-27 12:44 | WOUNDNOTE ---
wound photo: buttocks
--- NOTE | 2024-11-27 13:28 | CASEMGMT ---
Social Work SW received return email communication from [facility] DON, Xochilt, stating she discussed with care team and pt has had notable decline. Pt was able to assist herself to the bathroom prior. Team is concerned pt would need hospital bed, lucas lift, and additional care needs that may be too high level of care. EMILY noted pt has stage 2 wound, and given that and functional decline, hospice should be considered for management and assistance. SW will follow up with family out DON's concerns with returning, providing the option of pt returning with hospice or DC to a SNF without hospice.? Adelaida Marie BERRY GROWER SUPERVISOR CAP AND HAT PRODUCTION
[2024-11-27] MEDS: 0.9% Saline Lock 10 ML Syringe IV (20:20)
--- NOTE | 2024-11-28 02:07 | NURSING ---
Patient refusing to wear oxygen at bedtime this shift. Patient educated on importance d/t her oxygen dropping at times throughout the night. Patient verbalized understanding, yet continued to refuse oxygen at bedtime. Continue to educate and encourage use of oxygen at HS.
[2024-11-28 08:16] VITALS: BP 127/72; PULSE 77; RESP 16; TEMP 36.2; O2SAT 96
[2024-11-28 08:20] VITALS: PULSE 77
[2024-11-28] MEDS: 0.9% Saline Lock 10 ML Syringe IV ×2 (08:31→20:39)
[2024-11-28] MEDS: APIXABAN 5 MG TABLET PO ×2 (08:32→20:32)
--- NOTE | 2024-11-28 11:09 | CASEMGMT ---
Addendum entered by Adelaida Marie 11/28/24 14:18: Sister phoned this worker and siblings are requesting another meeting with therapy, nursing and this worker, and . KELTON offered to schedule meeting with SW, therapy and charge nurse, but Dr will not attend the meeting. can speak with sister, if there are specifics questions. Sister agreed to ask questions to the nurse about wound, etc, and if Dr is needed, she can follow up. Sister requested meeting 11/29 at 1330. SW agreed. SW noted that rounds after that time and will be on the unit for questions. Sister appreciative. SW informed nurse and PT. Original Note: Social Work SW phoned sister, Melody, to inform her of outcome with [facility]. Explained d/t pt's decline and high LOC and stage 2 wound, pt would need a lucas lift and hospital bed, and hospice services to return. Sister was also concerned about [facility]'s ability to care for pt at [facility]. Sister stated that pt already has a hospital bed though. Sister inquired about hospice services. SW educated to no longer pursuing curative treatment, therapy or hospital treatment; focuses on comfort and quality of life. Thus, pt would need to elect DNR-CC and to have those wishes related to hospice. If pt/family declines hospice services, pt would DC to a SNF where her needs can be met. Sister expressed understanding and inquired about insurance coverage. SW educated to continuing with OOP cost for room and board at [facility] or SNF, but hospice would provide DME needs and all services related to hospice, would be covered by pt's Medicare. Sister stated she will discuss with the family and notify SW of decision. SW noted the goal is for pt DC next week, and SW will assist with DC plans. Sister expressed understanding. SW will continue to follow. Adelaida Marie HOME CONNECT LPN TESTER [employer] PACKAGES
[2024-11-29 06:00] LABS: Hematocrit 36.2 % (37-47); Hemoglobin 11.7 g/dL (12.0-15.0); Immature Granulocytes Count 0.000 X10^3/uL (0.0-0.0); Mean Corp Hgb Conc 32.3 g/dL (32-36); Mean Corpuscular Volume 90.0 fL (81-99); Mean Platelet Vol. 10.3 fl (6.2-12.0); NRBC Flagged by Analyzer 0 % (0-5); Platelet Count 170 K/mm3 (150-450); RBC Distribution Width CV 15.3 % (11.6-14.6); RBC Distribution Width SD 50.5 fl (35.1-43.9); Red Blood Count 4.02 M/mm3 (4.2-5.4); White Blood Count 4.3 K/mm3 (4.4-11.0)
[2024-11-29 06:15] LABS: Anion Gap 7 (5-15); BUN 19 mg/dL (4-19); BUN/Creat Ratio 16.9 RATIO (10-20); Calcium,Total 8.3 mg/dL (7.6-11.0); Carbon Dioxide 27.3 mmol/L (21.0-32.0); Chloride 105 mmol/L (98-108); Estimated Creatinine Clearance 32.57 ml/min (50-250); Glucose 69 mg/dL (70-99); Potassium 3.3 mmol/L (3.3-5.1)
[2024-11-29 08:31] VITALS: BP 119/60; PULSE 89; RESP 16; TEMP 37.1; O2SAT 94
[2024-11-29] MEDS: APIXABAN 5 MG TABLET PO ×2 (08:34→21:53)
[2024-11-29 11:10] VITALS: TEMP 36.6
--- NOTE | 2024-11-29 14:59 | DS.PCM_ITS ---
Providers Date of Admission: 11/15/24 Primary Care Physician: Dr. 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 trolley Routine Comment: Reason for Consult:: pain and redness in buttocks Reason For Visit: saddle PE,acute occlusive left Femoral popliteal Diagnosis Discharge Diagnosis (1) Debility: Status: Acute Code(s): R53.81 - Other malaise (2) Syncope: Status: Acute Code(s): R55 - Syncope and collapse (3) Acute respiratory failure with hypoxia: Status: Acute Code(s): J96.01 - Acute respiratory failure with hypoxia (4) Saddle pulmonary embolus: Status: Acute Code(s): I26.92 - Saddle embolus of pulmonary artery without acute cor pulmonale (5) Left leg DVT: Status: Acute Code(s): I82.402 - Acute embolism and thrombosis of unspecified deep veins of left lower extremity (6) Atrial fibrillation with RVR: Status: Acute Code(s): I48.91 - Unspecified atrial fibrillation (7) Sepsis: Status: Acute Code(s): A41.9 - Sepsis, unspecified organism (8) Sigmoid diverticulitis: Status: Acute Code(s): K57.32 - Diverticulitis of large intestine without perforation or abscess without bleeding (9) Cystitis: Status: Acute Code(s): N30.90 - Cystitis, unspecified without hematuria (10) Hypokalemia: Status: Acute Code(s): E87.6 - Hypokalemia (11) Hypophosphatemia: Status: Acute Code(s): E83.39 - Other disorders of phosphorus metabolism (12) Thyroid nodule: Status: Acute Code(s): E04.1 - Nontoxic single thyroid nodule (13) Essential (primary) hypertension: Status: Acute Code(s): I10 - Essential (primary) hypertension (14) Hyperlipidemia, unspecified: Status: Acute Code(s): E78.5 - Hyperlipidemia, unspecified (15) Chronic heart failure with preserved ejection fraction (HFpEF): Status: Acute Code(s): I50.32 - Chronic diastolic (congestive) heart failure (16) Chronic kidney disease, stage 3b: Status: Acute Code(s): N18.32 - Chronic kidney disease, stage 3b Plan 79 year old female with below past medical history hospitalized for syncope/acute respiratory failure with hypoxia 2/2 saddle pulmonary embolism/left lower extremity dvt, complicated by sepsis/sigmoid diverticulitis/cystitis, hypokalemia, hypophosphatemia, atrial fibrillation with rvr, acute kidney injury, right thyroid nodule, admitted to TCU with debility, here for rehabilitation, strengthening, prior to discharge to [facility]. * Debility - PT/OT. * Pain - Tylenol 1000mg q6 prn pain (1-10). * Bowel - senna/colace 1 tablet bid prn, X-ray of abdomen. * Adult immunization - Administer pneumonia vaccine, covid vaccine, flu vaccine as appropriate. * DVT prophylaxis - Eliquis. * Saddle pulmonary embolism/LLE dvt - Eliquis 10mg bid thru 11/21/2024, then 5mg bid, adjust dose once kidney function available. * Hyperlipidemia - Atorvastatin 10mg qhs. * Hypertension - Coreg 6.25mg bidcm, HCTZ 25mg daily. * Diverticulitis/Cystitis - Cefdinir 300mg bid thru 11/16/2024, Flagyl 500mg tid thru 11/16/2024. * Hypophosphatemia - Neutra Phos 1 packet bid, phos level tomorrow. * Tinea Corporis - Nystatin powder topical bid. * Thyroid nodule - 3.1cm right nodule, order thyroid ultrasound, biopsy if indicated. Medications at Discharge Home Medications apixaban 5 mg tablet (Eliquis) 10 mg PO BID blood clots 11/15/24 carvedilol 6.25 mg tablet 6.25 mg PO BID BP/pulse 11/15/24 cefdinir 300 mg capsule 300 mg PO BID UTI 11/15/24 hydrochlorothiazide 25 mg tablet 25 mg PO DAILY BP/fluid 11/15/24 loperamide 2 mg capsule (Anti-Diarrheal (loperamide)) 2 mg PO Q8H PRN diarrhea 11/15/24 metronidazole 500 mg tablet 500 mg PO TID infection 11/15/24 nystatin 100,000 unit/gram topical cream 1 applic topical BID yeast 11/15/24 potassium, sodium phosphates 280 mg-160 mg-250 mg oral powder packet (Phos-NaK) 1 packet PO BID electrolyte replacement 11/15/24 simvastatin 20 mg tablet 20 mg PO QHS cholesterol 11/15/24 Hospital Course Operations None Procedures None Summary of Care Provided Minutes Spent on Discharge: 35 Hospital Course: 79 year old female with below past medical history hospitalized for syncope/acute respiratory failure with hypoxia 2/2 saddle pulmonary embolism/left lower extremity dvt, complicated by sepsis/sigmoid diverticulitis/cystitis, hypokalemia, hypophosphatemia, atrial fibrillation with rvr, acute kidney injury, right thyroid nodule, admitted to TCU with debility, here for rehabilitation, strengthening, prior to discharge to [facility]. Discharge to [facility] 12/03/2024, Hospice. Physical Exam Const alert General Appearance: cooperative HEENT normocephalic Eyes PERRL and EOMs intact bilaterally Neck supple, no JVD and no carotid bruits Resp normal respiratory effort, normal air movement and clear to auscultation bilaterally Cardio regular rate and regular rhythm GI normal to inspection, nondistended, normoactive bowel sounds, non-tender and non-distended Extremity normal capillary refill General Extremity: Negative for edema Skin no rashes or lesions noted General Skin Exam: no breakdown Psych affect normal Appearance: appropriate Medical Records Data Medical Nutrition Assessment Dietitian: Malnutrition Criteria Met Start: 11/20/24 14:53 Freq: Status: Active Protocol: Document 11/27/24 09:59 JOSSELYN (Rec: 11/27/24 09:59 [facility] [id number]) Nutrition Malnutrition Evidence of Yes Malnutrition Exists Malnutrition (severe Acute Illness/Injury ): Evidenced By Suboptimal Energy Intake (Severe),Weight Loss (Severe) Intake Problem Increased Nutrient Needs (specify) Etiology (protein) related to wound healing Signs/Symptoms as evidenced by pressure injury on coccyx. 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 Weight / BMI Weight Weight: 59.239 kg Body Mass Index (BMI) 24.6 ABG / Lab / Microbiology Data 11/29/24 05:45 11/29/24 05:45 Laboratory: Laboratory Results - last 24 hr 11/29/24 05:45: WBC 4.3 L, RBC 4.02 L, Hgb 11.7 L, Hct 36.2 L, MCV 90.0, MCH 29.1, MCHC 32.3, RDW Std Deviation 50.5 H, RDW Coeff of Felipe 15.3 H, Plt Count 170, MPV 10.3, Immature Gran % (Auto) 0.000, Neut % (Auto) 48.1, Lymph % (Auto) 30.5, [place] % (Auto) 14.9 H, Eos % (Auto) 5.1 H, Baso % (Auto) 1.4 H, Absolute Neuts (auto) 2.1, Absolute Lymphs (auto) 1.31, Nucleated RBC % 0, Sodium 140, Potassium 3.3, Chloride 105, Carbon Dioxide 27.3, Anion Gap 7, BUN 19, Creatinine 1.12, Estim Creat Clear Calc 32.57 L, Est GFR (MDRD) Non-Af 49 L, BUN/Creatinine Ratio 16.9, Glucose 69 L, Calcium 8.3 Microbiology: Microbiology 11/25/24 06:29 Nasal Secretion SARS-CoV-2 Antigen (Rapid) - Final 11/23/24 05:30 Nasal Secretion SARS-CoV-2 Antigen (Rapid) - Final 11/21/24 06:15 Nasal Secretion SARS-CoV-2 Antigen (Rapid) - Final D/C Instructions Discharge Activity: Return to Normal Activity, May Shower and Use Walker Weight Bearing Status: Weight bearing as tolerated Call your doctor if you observe: Fever of 101 or Higher, Inability to urinate, Inability to have a bowel movement, Shortness of breath, Dizziness, Fainting spells, Swelling in the ankles, Chest pain and Uncontrolled pain DC O2, CPAP, BIPAP Needs Home O2 Discharge instructions: No Additional Instructions: Discharge to [facility] 12/03/2024, Hospice. Please Follow Up With: Дмитрий Temple MD When: As scheduled. Meaningful Use Info Meaningful Use Meaningful Use Diagnoses (Choose all that apply): None applicable Discharge Plan Admission Admit Date/Time: 11/15/24 12:25 Primary Reason for Your Visit: Debility. Attending Provider: Allen Ashley Chi Primary Care Provider: John Brewer Instructions Additional Instructions / Restrictions: Discharge to [facility] 12/03/2024, Hospice. Discharge Orders/Prescriptions Prescriptions: No Action carvedilol 6.25 mg tablet 6.25 mg PO BID hydrochlorothiazide 25 mg tablet 25 mg PO DAILY simvastatin 20 mg tablet 20 mg PO QHS Eliquis 5 mg tablet 10 mg PO BID cefdinir 300 mg capsule 300 mg PO BID loperamide [Anti-Diarrheal (loperamide)] 2 mg capsule 2 mg PO Q8H PRN (Reason: diarrhea) metronidazole 500 mg tablet 500 mg PO TID nystatin 100,000 unit/gram cream 1 applic topical BID potassium, sodium phosphates [Phos-NaK] 280-160-250 mg powder in packet 1 packet PO BID Referrals / Follow Up: John Brewer MD [Primary Care Provider, Family Practice]
--- NOTE | 2024-11-29 15:07 | CASEMGMT ---
Addendum entered by Adelaida Marie 11/29/24 16:44: SW emailed [facility] X[facility], updates on DC plan and clinicals. Original Note: Social Work SW, BENCH ASSEMBLER, EQUIP MAINT ENG and pole incisor operator met with patient's sister, Melody, brother and IAM in person and sister, Alyse, participated via conference call, in secluded location, per family request. All disciplines answered family's questions. Concluded pt is not making progress in therapy; potentially causing more of a decline as pt is not wanting to participate; Discussed pt's wound care and nursing actions. Educated to hospice services and code status, in detail; [place] vs SNF LOC. Family expressed hesitation about pt returning to [place] if they cannot meet pt's needs and pt being agreeable to hospice services or needing a SNF. Discussed at length the scenarios and SW provided support to ease difficult conversation. All parties concluded for SW to speak with pt 1:1 to assess ability to make her own decisions and her wishes with code status, hospice, returning to [place] and continuing with hospice. - SW spoke with pt 1:1 and asked a series of questions to gauge pt's ability to process and comprehend care being received in TCU and goals for care. For example, SW asked pt what her goals in therapy are. Pt replied, 'to be able to walk with my walker. SW asked if pt has walked yet. Pt replied, 'they haven't asked me to walk'. To assess pt's cognition, pt asked her age - answer: 77; - answer: 11/03. SW asked the year - answer: 1945. SW asked current year, month and day of the week - answer: 2025, November, Monday. SW explored pt's medical wishes with code status, end of life and continuing with therapy. pt was contradictory with her answers and was not able to problem solve the use of CPR and life sustaining measures. Pt asked this worker when she can return to [place]. SW asked if she wanted to DC to [facility] or another SNF. Pt wishes to return to [place]. SW asked if pt wanted to have comfort treatment and pt confirmed. Pt asked for SW to collaborate with her family and could name her brother and sister, and they were executor's of her will. SW asked if pt trusts their decisions, pt replied, absolutely. - SW returned to family and provided outcome of discussion. Concluded pt is not cognitively intact to make decision. Sister, Melody, is HCPOA and would make the decision for DC. Melody stated she and her brother make decisions together. Both agreed the best care for pt is to return to [place], to her own environment and elect hospice for comfort care and quality of life. SW offered list of hospice agencies to choose from and Melody requested [facility]. SW agreed and will place referral. Siblings wanted to speak with [facility] DON to ensure they can care for pt with hospice, but agreed to set DC date. SW offered 12/03 and all agreed. NOMNC issued and brother and sister both signed. All appreciative of assistance. IDT updated. Referral made to [facility]. Plan: DC 12/03 returning to [place] [facility], [facility] Adelaida ALSTON
--- NOTE | 2024-11-29 15:44 | NURSING ---
Addendum entered by Cherry Roberto 11/29/24 18:45: Called UA results to Dr. Ashley. TORB for Cipro x5 days and ensure urine culture sent out. Urine culture results pending. Addendum entered by Cherry Roberto 11/29/24 16:22: Walked into pts room to attempt straight cath, pt is getting off bedpan. sent clean cath urine sample. Urine is dark yellow, cloudy. Original Note: Pt complaining of dysuria, has had incontinent bowel episodes. Dr. Ashley entered order for UA w/C&S. Attempted straight cath this afternoon, pt moaning and grabbing at equipment, refusing procedure. Agreed to try again later this afternoon.
[2024-11-29 16:24] LABS: Mucous, Urine 0 SEEN /hpf (<or=2+); Red Blood Cells-Urine 0 SEEN /hpf (0-5)
[2024-11-29 16:36] LABS: Color, Urine Yellow (Yellow); Glucose, Dipstick Normal (Normal); Ketone-Dipstick 5 mg/dl (Negative); Leukocyte Esterase-Dipstick 500 /ul (Negative); Nitrite-Dipstick Positive (Negative); Occult Blood-Urine 150 /ul (Negative); Protein-Dipstick 100 mg/dl (Negative); Specific Gravity, Urine 1.020 (1.002-1.030); Urine Bilirubin Dipstick Negative (Negative)
[2024-11-29 17:30] LABS: Squamous Epithelial Cells - UA 0-5 SEEN /hpf (5-10)
[2024-11-29] MEDS: 0.9% Saline Lock 10 ML Syringe IV (17:35)
--- NOTE | 2024-11-29 18:46 | NURSING ---
COAL LOADER received phone call from pt's sister Melody, who had many questions for nursing staff regarding discharge plan and if hospice is appropriate. Provided active listening, Melody states that if she has any other questions she will contact Dr. Ashley or KELTON on Monday.
[2024-11-30] MEDS: 0.9% Saline Lock 10 ML Syringe IV ×3 (06:05→20:56)
[2024-11-30] MEDS: APIXABAN 5 MG TABLET PO ×2 (09:02→20:56)
[2024-11-30 09:13] VITALS: BP 108/67; PULSE 85; RESP 16; TEMP 36.6; O2SAT 95
[2024-11-30 17:23] VITALS: BP 117/69; PULSE 73
[2024-11-30 23:25] VITALS: RESP 16
[2024-12-01] MEDS: APIXABAN 5 MG TABLET PO ×2 (09:49→20:41)
[2024-12-01 09:55] VITALS: BP 118/80; PULSE 87; RESP 18; TEMP 36.7; O2SAT 96
[2024-12-01] MEDS: 0.9% Saline Lock 10 ML Syringe IV ×2 (11:26→20:41)
[2024-12-01 11:30] VITALS: PULSE 87; RESP 18; O2SAT 96
[2024-12-01 17:41] VITALS: BP 102/72; PULSE 87
[2024-12-02 01:46] VITALS: PULSE 88; RESP 18; O2SAT 95
--- NOTE | 2024-12-02 07:54 | CASEMGMT ---
Addendum entered by Adelaida Marie 12/02/24 10:59: Aneta requesting lucas w/c, bedside table. SW emailed hospice to notify. - SW scheduled cot transport through [facility] for 1100 on 12/03/24. Physician's notified this worker that d/t insurance, [physician's] will need to collect 50% of payment prior to the trip. SW provided dispatcher with sister's contact information to collect payment. Dispatcher to notify this worker once payment is provided to ensure transport will be completed. Original Note: Social Work Family is meeting with hospice this date at 1630. Adelaida Marie MSW FIELD TECH
[2024-12-02 09:16] VITALS: BP 109/74; PULSE 67; RESP 16; TEMP 36.8; O2SAT 93
[2024-12-02] MEDS: APIXABAN 5 MG TABLET PO ×2 (09:19→22:11)
[2024-12-02] MEDS: 0.9% Saline Lock 10 ML Syringe IV ×2 (09:20→22:15)
[2024-12-03 04:00] VITALS: PULSE 86; RESP 18
[2024-12-03 09:44] VITALS: BP 118/73; PULSE 94; RESP 16; TEMP 36.8; O2SAT 93
[2024-12-03 10:00] VITALS: BP 112/71; PULSE 96; RESP 18; TEMP 36.4; O2SAT 94
== END 2024-12-03 10:45 | disposition hospice, inpatient (51) | DRG 176 ==
PROVIDERS: Internal Medicine; Admitting Provider Family Medicine Geriatric Medicine; PCP Family Medicine; Referring Provider Family Medicine Geriatric Medicine; Visit Provider Family Medicine Geriatric Medicine
DX: I26.92 Saddle embolus of pulmonary artery without acute cor pulmonale (principal); E44.1 Mild protein-calorie malnutrition; I50.32 Chronic diastolic (congestive) heart failure; I13.0 Hypertensive heart and chronic kidney disease with heart failure and stage 1 through stage 4 chronic kidney disease, or unspecified chronic kidney disease; I82.402 Acute embolism and thrombosis of unspecified deep veins of left lower extremity; K57.32 Diverticulitis of large intestine without perforation or abscess without bleeding; N30.00 Acute cystitis without hematuria; L89.312 Pressure ulcer of right buttock, stage 2; I48.91 Unspecified atrial fibrillation; B35.4 Tinea corporis; N18.32 Chronic kidney disease, stage 3b; E04.2 Nontoxic multinodular goiter; E83.39 Other disorders of phosphorus metabolism; E78.5 Hyperlipidemia, unspecified; E87.6 Hypokalemia; Z79.899 Other long term (current) drug therapy; Z87.891 Personal history of nicotine dependence; Z79.01 Long term (current) use of anticoagulants; Z23 Encounter for immunization; Z68.24 Body mass index [BMI] 24.0-24.9, adult
CPT/HCPCS: 36415; 72110; 74018; 76536; 80048; 80053; 81001; 82962; 83735; 85025; 87077; 87086; 87088; 87186; 87811; 91322; 92507; 92523; 92610; 97110; 97163; 97166; 97530; 97535; 97802; A4216